=== PATIENT | male | born 1995 | race Caucasian/White ===

== ENCOUNTER 2022-07-18 00:34 | Emergency (ER) | payer OTHER ==
[~2022-07-18] VITALS: Ht 177.8 cm; Wt 77.0 kg
[2022-07-18 02:36] VITALS: BP 136/68
== END 2022-07-18 02:46 | disposition home or self-care (01) ==
LOC: EMS 00:39
DX: J18.9 Pneumonia, unspecified organism (principal); F17.210 Nicotine dependence, cigarettes, uncomplicated; F15.90 Other stimulant use, unspecified, uncomplicated; Z91.013 Allergy to seafood
CPT/HCPCS: 74176; 99284; Z7502